=== PATIENT | female | born 1975 | race Caucasian/White ===

== ENCOUNTER 2018-01-15 11:57 | Emergency (ER) | payer OTHER, BC ==
[2018-01-15 12:06] VITALS: BP 126/75
[2018-01-15] MEDS ORDERED: CLIN300C99 PO ×2 (12:06→12:40)
--- NOTE | 2018-01-15 12:10 | ER Report ---
History and Physical Time Seen By MD: 12:10 HPI/ROS CHIEF COMPLAINT: Mouth pain HISTORY OF PRESENT ILLNESS: 42-year-old female patient presents to emergency room with complaint of mouth pain. Patient states that she had a tooth extraction done last week on Sunday. She states that she has had lots of pain since then. She states that the pain seems to be on the right side of her mouth. She denies having any fevers however she states that she has been feeling warm. She checked her temperature of 99.6. Patient states that she's not had any vomiting or diarrhea. Patient states that she has been taking clindamycin for the last couple days. She states she was prescribed 300 mg twice a day when she was in [place]. Patient denies having any improvement in the pain. She states she been taking Tylenol or ibuprofen as needed for pain. Allergies: Coded Allergies: codeine (Verified Allergy, Mild, 01/15/18) hydrocodone (Verified Allergy, Mild, 01/15/18) doxycycline (Verified Allergy, Unknown, 01/15/18) erythromycin base (Verified Allergy, Unknown, 01/15/18) morphine (Verified Allergy, Unknown, 01/15/18) tramadol (Verified Allergy, Unknown, 01/15/18) Home Meds Active Scripts Oxycodone Hcl/Acetaminophen (PERCOCET 5-325 MG TABLET) 1 Each Tablet, 1 EACH PO Q4-6H Y for PAIN, #8 TAB Prov:DAVID CHIUE [facility] 01/15/18 Clindamycin Hcl (CLINDAMYCIN HCL) 300 Mg Capsule, 300 MG PO Q6H, #28 CAPSULE Prov:GAIL CHIU [facility] 01/15/18 Reported Medications Clindamycin Hcl (CLINDAMYCIN HCL) 300 Mg Capsule, 300 MG PO BID, #40 CAPSULE 01/15/18 Past Medical/Surgical History Patient has a past medical history of endometriosis. Patient has surgical history of tubal ligation, right knee surgery, tooth extraction, tonsillectomy. Constitutional Vital Sign - Last 24 Hours 01/15/18 01/15/18 01/15/18 01/15/18 12:04 12:06 12:12 12:27 Temp 97.3 Pulse 72 85 91 Resp 16 B/P (MAP) 126/75 (92) 126/75 Pulse Ox 94 96 97 O2 Delivery Room Air 01/15/18 01/15/18 01/15/18 12:32 12:37 12:42 Pulse 85 286 81 Pulse Ox 96 100 94 Physical Exam General appearance: Alert no distress. Respiratory: Chest is non tender, lungs are clear to auscultation. Cardiac: Regular rate and rhythm. ENT: Tympanic membranes are pearly-ling, auditory canals are patent, mucus mucous membranes are moist. Patient does have sutures located to the right side of the upper gums, there is no erythema, there is no drainage noted. Patient does have significant amount tenderness to the right side of the mouth. She does have a suture there. DIFFERENTIAL DIAGNOSIS: After history and physical exam differential diagnosis was considered for postsurgical infection, dental pain, anxiety. Medical Decision Making ED Course/Re-evaluation ED Course Patient was admitted to exam room, history and physical were obtained. Differential diagnoses were considered. On examination patient had 1 suture in her mouth, there was one was also located in the lip. Patient states she has significant amount of discomfort to palpation. Heart and lungs were clear. Patient requested that the suture on her P removed. I did go ahead and remove that. There is no dehiscence at that point. We will go ahead and give her more the clinic myself, that she can take 4 times a day. We will also give her limited supply of pain medication. We will discharge her home at this time. She is follow-up with oral surgeon when she arrives in [place]. Patient verbalized understanding and agreement with plan. Decision to Disposition Date: Jan 15, 2018 Decision to Disposition Time: 12:43 Depart Departure Latest Vital Signs Vital Signs Date Time Temp Pulse Resp B/P (MAP) Pulse Ox O2 Delivery O2 Flow Rate FiO2 01/15/18 12:42 81 94 01/15/18 12:06 97.3 16 126/75 Room Air Impression: Primary Impression: Dental infection Condition: Improved Disposition: HOME OR SELF-CARE New Scripts Oxycodone Hcl/Acetaminophen (PERCOCET 5-325 MG TABLET) 1 Each Tablet 1 EACH PO Q4-6H Y for PAIN, #8 TAB Prov: GAIL CHIU 01/15/18 Clindamycin Hcl (CLINDAMYCIN HCL) 300 Mg Capsule 300 MG PO Q6H, #28 CAPSULE Prov: GAIL CHIU 01/15/18 Patient Instructions: GENERAL ER DISCHARGE INSTRUCTIONS Additional Instructions: You may take Ibuoprofen in addition to the pain medication as needed for pain. Rinse mouth with warm salt water after every meal. Eat soft foods. Follow up with your dentist as soon as possible, call to make an appointment. Return to the ER if condition worsens. Do not take pain medication while driving. GAIL CHIU Jan 15, 2018 12:10
[2018-01-15] MEDS ORDERED: OXYC-865 PO (12:40)
== END 2018-01-15 12:47 | disposition home or self-care (01) ==
LOC: ER 12:08
DX: K04.7 Periapical abscess without sinus (principal)
CPT/HCPCS: 99281